=== PATIENT | male | born 1985 | race Asian ===

== ENCOUNTER → 2019-09-09 07:08 | Outpatient (CLI) | payer OTHER, SELFPAY ==
--- NOTE | 2019-09-09 08:22 | P.PCN_ITS ---
Cardiac Stress Test Report Referral & Results Date Patient Seen: 09/09/19 Time Patient Seen: 08:00 Requesting provider: Poornima Sanders Indication: Chest discomfort Rest ECG: Normal sinus rhythm Procedure Note: Today following both written and verbal informed consent, the patient was exercised according to a standard [facility] protocol. The patient exe rcised for a total of 10 minutes 26 seconds achieving a maximum heart rate of 178. Patient's maximum systolic blood pressure was 172. This was an estimated 12.8 METs. Normal hemodynamic response to exercise. GELACIO +10% on active scale. No signs or symptoms of angina. No change in rhythm. Impression: Low probability for ischemia. Hennessy treadmill score of 10 is correlated with a 5-year survival of 97% from cardiac causes of mortality. Please note: Actual ECG tracings can be found in the PACS system.
== END ==
DX: R07.89 Other chest pain (principal)
CPT/HCPCS: 93016; 93017; 93018

== ENCOUNTER 2020-11-16 21:37 | Emergency (ER) | payer OTHER, SELFPAY ==
[2020-11-16 21:45] VITALS: BP 164/98; PULSE 92; RESP 17; TEMP 37.2; O2SAT 94; BMI 29.5
--- NOTE | 2020-11-16 21:51 | DI.RAD.S_ITS ---
PROCEDURE: XR SHOULDER RT MIN 2V INDICATIONS: Fall on shoulder with deformity TECHNIQUE: 2 views of the shoulder were acquired. COMPARISON: None. FINDINGS: Bones: There is no fracture. There is superior elevation of the distal right clavicle with widening of the acromioclavicular interval of at least 1.5 centimeter. In addition there is widening of the cortical clavicular interval to approximately 2.0 centimeters. Soft tissues: There is mass effect on the adjacent soft tissues adjacent to the distal clavicle. Imaged lungs are clear. IMPRESSION: Acromioclavicular joint injury, at least Gerardo type III. Agree with preliminary report. Dictated by: Gian Ross D.O. on 11/17/2020 at 7:09 Approved by: Gian Ross D.O. on 11/17/2020 at 7:17
--- NOTE | 2020-11-16 22:39 | ED_ITS ---
HPI - Extremity Injury (Upper) General Chief Complaint: Extremity Injury, Upper Stated Complaint: RIGHT ARM INJURY Time Seen by Provider: 11/16/20 21:56 Source: patient Mode of arrival: Ambulatory Limitations: no limitations History of Present Illness HPI narrative: Patient is a 35-year-old male presents with right shoulder pain after he fell. He states he frequently gets dizzy and vertigo possibly a medication that face is not uncommon for him at. He says every time he bends or moves he gets dizzy. This evening he decided to go for a run and he got dizzy. At that time he fell and landed on his shoulder. Denies any numbness or tingling. No chest pain or palpitations. He did not hit head or lose consci ousness no nausea or vomiting MD complaint: injury to: right and shoulder Related Data Allergies Allergy/AdvReac Type Severity Reaction Status Date / Time No Known Drug Allergies Allergy Verified 11/16/20 21:53 Review of Systems Review of Systems Narrative: GENERAL: Denies chills, fatigue, malaise, fever, sweats, travel HEENT: Denies sinus pain, ear pain, sore throat, difficulty swallowing, neck pain RESPIRATORY: Denies dyspnea, cough, wheezing, hemoptysis, sputum. CARDIOVASCULAR: Denies chest pain, palpitations, orthopnea, edema GASTROINTESTINAL: Denies nausea, vomiting, abdominal pain, diarrhea, constipati on, melena. : Denies dysuria, frequency, incontinence, hematuria, urinary retention, flank pain. MUSCULOSKELETAL: Right shoulder see HPI SKIN: No rash, no erythema, no pruritus NEUROLOGIC: Chronic dizziness see HPI PSYCHIATRIC: No concerning psychosocial issues. 12 point review of systems is negative except for those stated above and HPI Patient History Social History Smoking Status: Current every day smoker Smoking Status: Current every day smoker alcohol intake frequency: a few times a month Substance Use Type: does not use Exam Initial Vital Signs Initial Vital Signs: Vital Signs Temperature 98.9 F 11/16/20 21:45 Pulse Rate 92 H 11/16/20 21:45 Respiratory Rate 17 11/16/20 21:45 Blood Pressure 164/98 H 11/16/20 21:45 Pulse Oximetry 94 11/16/20 21:45 GENERAL: Alert well-appearing 35 and in no acute distress. HEENT: Head atraumatic,EOMI, pupils reactive, face symmetric, moist mucous membranes CARDIOVASCULAR: Regular rate and rhythm without murmurs, rubs or gallops. RESPIRATORY: Breath sounds equal bilaterally, no wheezes rales or rhonchi. ABDOMEN: Soft, nontender. Normoactive bowel sounds all 4 quadrants. No guarding or rebound. EXTREMITIES: Normal range of motion, no clubbing or edema. Neurovascularly intact. Step-off sensation in deltoid intact NEUROLOGICAL: Alert and oriented x4.Normal gait and speech. Cranial nerves II through XII grossly intact. SKIN: Warm, dry, no laceration, no petechiae, no rashes or lesions. Course Orders Ordered: ED Orders 11/16/20 21:51 XR shoulder RT min 2V Stat 11/16/20 21:52 EKG-12 Lead Stat 11/16/20 22:40 Complete Blood Count AUTO DIFF Stat Comprehensive Metabolic Panel Stat Discontinued Medications Hydrocodone Bitart/Acetaminophen (Hydrocodone/Acet 5/325 Prepack) 1 bottle MISC SEEINSTR ONE Stop: 11/16/20 23:33 Last Admin: 11/16/20 23:35 Dose: 1 bottle Documented by: SARAHY Ketorolac Tromethamine (Ketorolac 30 Mg/Ml Vial) 15 mg IV NOW ONE Stop: 11/16/20 22:55 Last Admin: 11/16/20 23:00 Dose: 15 mg Documented by: ENMA Vital Signs Vital signs: Vital Signs - 8 hr 11/16/20 21:45 11/16/20 23:42 Temperature 98.9 F Pulse Rate 92 H 74 Respiratory Rate 17 16 Blood Pressure 164/98 H 152/105 H Pulse Oximetry 94 97 MDM - Extremity Injury (Upper) Lab Data Attestation: I reviewed the patient's lab results. Result diagrams: 11/16/20 22:40 11/16/20 22:40 Labs: Lab Results 11/16/20 11/16/20 Range/Units 22:40 22:40 WBC 10.1 (4.5-11.0) X10^3/uL RBC 6.41 H (4.5-5.9) X10^6/uL Hgb 13.9 (13.5-17.5) g/dL Hct 43.7 (41-53) % MCV 68.1 L (80-100) fL MCH 21.7 L (26-34) PG MCHC 31.9 (30-36) % RDW 15.1 H (11.6-14.8) % Plt Count 296 (150-400) X10^3/uL Neut % (Auto) 56.7 (50-75) % Lymph % (Auto) 33.3 (25-40) % Ector % (Auto) 7.9 (3-14) % Eos % (Auto) 1.2 L (2-4) % Baso % (Auto) 0.9 (0-2) % Neut # (Auto) 5700 (8606-1738) /uL Lymph # (Auto) 3400 (0628-9562) /uL Ector # (Auto) 800 (0-900) /uL Eos # (Auto) 100 (0-450) /uL Baso # (Auto) 100 (0-100) /uL RBC Morphology See below Microcytosis 2+ H Sodium 137 (137-145) mmol/L Potassium 3.6 (3.4-5.1) mmol/L Chloride 104 (98-107) mmol/L Carbon Dioxide 24 (22-32) mmol/L BUN 16 (9-20) mg/dL Creatinine 0.99 (0.66-1.25) mg/dL Estimated GFR > 60.0 (>60) mL/min BUN/Creatinine Ratio 16.2 (6-22) Glucose 139 H (70-100) mg/dL Calcium 9.4 (8.4-10.2) mg/dL Total Bilirubin 0.4 (0.2-1.3) mg/dL AST 40 (17-59) IU/L ALT 46 (<50) IU/L Alkaline Phosphatase 95 (38-126) U/L Total Protein 8.0 (6.3-8.2) g/dL Albumin 4.5 (3.5-5.0) g/dL Globulin 3.5 (1.7-4.1) g/dL Albumin/Globulin Ratio 1.3 (1.0-2.8) Imaging Data Extremity x-ray #1: Radiologist's Impression: Preliminary read port acromioclavicular injury liquid type 3. No glenohumeral dislocation no fracture ECG Data Attestation: I personally reviewed and interpreted this ECG as follows: Interpretation: Normal sinus rhythm rate 80 p.r. interval [address] changes or T-wave inversions Q-wave noted in lead 3 only MDM Narrative Medical decision making narrative: Patient has an AC separation no dislocation of his shoulder. He is chronically dizzy has vertigo frequently. Electrolytes and EKG are overall reassuring. At this time recommend outpatient follow-up and medication re-evaluation. No new neurologic deficits today. No need for further imaging at this time. Discharge Plan Departure Patient Disposition: Home Clinical Impression: Vertigo Acromioclavicular joint separation, type 3 Qualifiers: Encounter type: initial encounter Laterality: right Qualified Code(s): S43.101A - Unspecified dislocation of right acromioclavicular joint, initial encounter Instructions: DI for AC Joint Separation Activity Restrictions/Additional Instructions: *You have been diagnosed with acromioclavicular separation chronic vertigo *What to do: At this time wear sling for about 2-3 weeks. Ice 20-30 minutes at that time *Continue to take medications as directed Ibuprofen 800 mg every 8 hours if needed for [id number] pain [place] 1-2 tablets every 6 hours if needed for severe pain *Follow up with your primary care provider in 2-3 days *Return to ER if you should have increasing pain, numbness, tingling, weakness or any new, worsening or concerning symptoms CONTROLLED SUBSTANCE DISCHARGE (Narcotoic/benzodiazepine/Flexeril/Phenergan) 1. You have been prescribed narcotic medications, it does have acetamin ophen/Tylenol/paracetamol in it, DO NOT TAKE MORE THAN 4,00mg in 24 hours of Tylenol. TRAMADOL DOES NOT CONTAIN TYLENOL 2. Please understand that we cannot provide further refills of narcotics, be nzodiazepines or controlled substances through the ED and her pain management will need to be through your provider. 3. While on these medications you cannot drive or operate heavy machinery. 4. You cannot sign legal documents or perform any duties such as this. 5. As long as you're taking opiate pain medications he should also be taking a stool softener such as Colace, Dulcolax, MiraLAX or prune juice, to help avoid constipation. Referrals: [facility] [Provider Group]
[2020-11-16] MEDS: KETOROLAC 30 MG/ML VIAL 15 MG IV (23:00)
[2020-11-16 23:03] LABS: Add Manual Diff / Slide Review NO; Basophils Absolute Auto 100 /uL (0-100); Basophils Percent Auto 0.9 % (0-2); Eosinophils Absolute Auto 100 /uL (0-450); Eosinophils Percent Auto 1.2 % (2-4); Hematocrit 43.7 % (41-53); Hemoglobin 13.9 g/dL (13.5-17.5); Lymphocytes Absolute Auto 3400 /uL (1100-4500); Lymphocytes Percent Auto 33.3 % (25-40); Mean Corpuscular HGB Conc 31.9 % (30-36); Mean Corpuscular Hemoglobin 21.7 PG (26-34); Mean Corpuscular Volume 68.1 fL (80-100); Monocytes Absolute Auto 800 /uL (0-900); Monocytes Percent Auto 7.9 % (3-14); Neutrophils Absolute Auto 5700 /uL (1500-7000); Neutrophils Percent Auto 56.7 % (50-75); Platelet Count 296 X10^3/uL (150-400); Red Blood Cell Count 6.41 X10^6/uL (4.5-5.9); Red Cell Distribution Width 15.1 % (11.6-14.8); White Blood Cell Count 10.1 X10^3/uL (4.5-11.0)
[2020-11-16 23:09] LABS: Alanine Aminotransferase 46 IU/L (<50); Albumin 4.5 g/dL (3.5-5.0); Albumin Globulin Ratio 1.3 (1.0-2.8); Alkaline Phosphatase 95 U/L (38-126); Aspartate Aminotransferase 40 IU/L (17-59); BUN Creatinine Ratio 16.2 (6-22); Bilirubin Total 0.4 mg/dL (0.2-1.3); Blood Urea Nitrogen 16 mg/dL (9-20); Calcium 9.4 mg/dL (8.4-10.2); Carbon Dioxide 24 mmol/L (22-32); Chloride 104 mmol/L (98-107); Estimated Glomerular Filt Rate > 60.0 mL/min (>60); Globulin 3.5 g/dL (1.7-4.1); Glucose 139 mg/dL (70-100); HEMOLYSIS 46 (0-50); Potassium 3.6 mmol/L (3.4-5.1); Sodium 137 mmol/L (137-145)
[2020-11-16 23:20] LABS: Microcytosis 2+
[2020-11-16] MEDS: HYDROCODONE/ACET 5/325 PREPACK 1 BOTTLE MISC (23:35)
[2020-11-16 23:42] VITALS: BP 152/105; PULSE 74; RESP 16; O2SAT 97
== END 2020-11-16 23:43 | disposition home or self-care (01) ==
PROVIDERS: Emergency Provider Emergency Medicine
DX: R42 Dizziness and giddiness (principal); S43.101A Unspecified dislocation of right acromioclavicular joint, initial encounter; W19.XXXA Unspecified fall, initial encounter
CPT/HCPCS: 36415; 73030; 80053; 85025; 93005; 96374; 99284; J1885

== ENCOUNTER → 2021-02-14 11:47 | Outpatient (CLI) | payer OTHER, SELFPAY ==
--- NOTE | 2021-02-14 11:49 | DI.MRI.S_ITS ---
PROCEDURE: MR ELBOW LT W CON INDICATIONS: Unspecified injury of left elbow, initial encounte TECHNIQUE: Noncontrast coronal proton density fast spin echo and T2 fast spin echo with fat saturation, axial and sagittal T1 spin echo and T2 fast spin echo with fat saturation through the elbow. COMPARISON: [facility] Outside Film, CR, XR ELBOW 1 OR 2 VIEWS LEFT, 12/26/2020, 9:28. [facility] Outside Film, CR, XR ELBOW 1 OR 2 VIEWS LEFT, 02/01/2020, 14:16. FINDINGS: Image quality: Excellent. Lateral structures: The lateral ulnar collateral ligament and radial collateral ligament both appear intact. The overlying common extensor tendon also appears normal. Medial structures: Mild fat intensity signal is seen at the origin of the ulnar collateral ligament, with some overlying fibers remain in continuity, most likely secondary to chronic low-grade partial tearing. The overlying common flexor tendon appears normal. The ulnar nerve appears normal in size and signal within the cubital tunnel. Anterior structures: The biceps and brachialis tendons both appear intact as they insert onto the proximal radius and ulna, respectively. No bicipitoradial bursal fluid. The median and radial neurovascular bundles appear normal; no focal muscle atrophy to suggest nerve impingement. Posterior structures: The conjoint triceps tendon from the long and lateral heads appears intact. The medial head of the triceps tendon also appears normal, with direct muscle insertion onto the olecranon. No olecranon bursal fluid. Bone and cartilage: There is a chronic healed fracture involving the radial head with residual irregularity at the articular surface and overlying cartilage loss. Degenerative changes and cartilage loss are noted in the adjacent portion of the capitellum with mild subchondral edema. No significant joint effusion is seen. No intra-articular loose body is seen. There is posttraumatic or degenerative irregularity of the coronoid process of the ulna. IMPRESSION: 1. Chronic healed fracture of the radial head with mild irregularity and step-off at the radial articular surface with secondary radiocapitellar degenerative changes. 2. 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 Dictated by: Shiva Marie M.D. on 02/14/2021 at 13:14 Approved by: Shiva Marie M.D. on 02/14/2021 at 13:25
== END ==
PROVIDERS: PCP Orthopaedic Surgery; Referring Provider Orthopaedic Surgery; Visit Provider Orthopaedic Surgery
DX: S59.902A Unspecified injury of left elbow, initial encounter (principal); S53.442A Ulnar collateral ligament sprain of left elbow, initial encounter; X58.XXXA Exposure to other specified factors, initial encounter; Z87.81 Personal history of (healed) traumatic fracture
CPT/HCPCS: 73221